=== PATIENT | male | born 1975 | race Caucasian/White ===

== ENCOUNTER 2021-05-02 10:27 | Emergency (ER) | payer BC ==
[2021-05-02 10:40] VITALS: RESP 18
[2021-05-02 11:49] LABS: Basophils % (A) 0 %; Eosinophils # (A) 0.1 k/uL (0-0.7); Eosinophils % (A) 1 %; HCT 40.1 % (39.0-53.0); HGB 13.3 gm/dL (13.0-17.5); Lymphocytes # (A) 0.9 k/uL (1.0-4.8); Lymphocytes % (A) 8 %; MCH 29.5 pg (25.0-35.0); MCHC 33.2 g/dL (31.0-37.0); MCV 88.9 fL (80.0-100.0); Mean Platelet Volume 7.1; Monocytes # (A) 0.9 k/uL (0-1.0); Monocytes % (A) 7 %; Neutrophils # (A) 10.2 k/uL (1.3-7.7); Neutrophils % (A) 83 %; Platelet Count 235 k/uL (150-450); RBC 4.52 m/uL (4.30-5.90); RDW 13.6 % (11.5-15.5); WBC 12.4 k/uL (3.8-10.6)
--- NOTE | 2021-05-02 11:51 | ED ---
Skin/Abscess/FB HPI - General Chief complaint: Skin/Abscess/Foreign Body Stated complaint: arm infection, swelling Time Seen by Provider: 05/02/21 10:51 Source: patient Mode of arrival: ambulatory Limitations: no limitations - History of Present Illness Initial comments: Patient is a 46-year-old male with history of diabetes, presenting to the emergency Department with complaints of an infection on his right arm. Patient states last week he noticed a small pimple on his arm, he picked at it and then that same day he was weed whacking his yard. Patient states after that he noticed the irritation looked worse. He states over the past few days the redness and swelling progressed so he went to [facility] 2 days ago for evaluation. They started him on Keflex and Bactrim, do a line around the redness and gave him return precautions. Patient states this morning he woke up and the swelling is increased, and swelling is going up to his elbow and down into his hand which wasn't there before. He states his pain is minimal. He's had no fevers, no nausea or vomiting. He has been taking his medications as prescribed over the past day and a half. He has no further complaints at this time. Upon arrival to the ER his vital signs are stable. - Related Data Home Medications Medication Instructions Recorded Confirmed Acetaminophen [Tylenol] 500 mg PO Q4-6H PRN 05/02/21 05/02/21 Aspirin EC [Ecotrin Low Dose] 81 mg PO HS 05/02/21 05/02/21 Cephalexin [Keflex] 500 mg PO QID 05/02/21 05/02/21 Fluvastatin Sodium 20 mg PO HS 05/02/21 05/02/21 Ibuprofen [Motrin Ib] 800 mg PO Q8H PRN 05/02/21 05/02/21 Naproxen 500 mg PO BID 05/02/21 05/02/21 Pantoprazole Sodium [Protonix] 40 mg PO DAILY 05/02/21 05/02/21 Sulfamethox-Tmp 800-160Mg [Bactrim 1 tab PO Q12HR 05/02/21 05/02/21 DS 800-160 mg] metFORMIN HCL 1,000 mg PO HS 05/02/21 05/02/21 sitaGLIPtin [Januvia] 100 mg PO HS 05/02/21 05/02/21 Allergies Allergy/AdvReac Type Severity Reaction Status Date / Time bee venom protein (honey bee) Allergy Swelling Verified 05/02/21 11:23 egg Allergy Unknown Verified 05/02/21 11:23 Review of Systems ROS Statement: Those systems with pertinent positive or pertinent negative responses have been documented in the HPI. ROS Other: All systems not noted in ROS Statement are negative. Past Medical History Past Medical History: Diabetes Mellitus History of Any Multi-Drug Resistant Organisms: None Reported Additional Past Surgical History / Comment(s): vasectomy Past Psychological History: No Psychological Hx Reported Smoking Status: Current every day smoker Past Alcohol Use History: None Reported Past Drug Use History: None Reported General Exam - General Exam Comments Initial Comments: GENERAL: Patient is well-developed and well-nourished. Patient is nontoxic and in no ac [place] distress. HEAD: Atraumatic, normocephalic. EYES: Pupils equal round and reactive to light, extraocular movements intact, sclera anicteric, conjunctiva are normal. Eyelids were unremarkable. ENT: TMs normal, nares patent, oropharynx clear without exudates. Moist mucous me mbranes. NECK: Normal range of motion, supple without lymphadenopathy or JVD. LUNGS: Unlabored respirations. Breath sounds clear to auscultation bilaterally and equal. No wheezes rales or rhonchi. HEART: Regular rate and rhythm without murmurs, rubs or gallops. ABDOMEN: Soft, nontender, normoactive bowel sounds. No guarding, no rebound. No masses appreciated. : Deferred MUSCULOSKELETAL: Normal extremities with adequate strength and normal range of motion, no pitting or edema. No clubbing or cyanosis. NEUROLOGICAL: Patient is alert and oriented x 3. Motor and sensory are also intact. Cranial nerves II through XII grossly intact. Symmetrical smile. Normal speech, normal gait. PSYCH: Normal mood, normal affect. SKIN: Warm, Dry, normal turgor. Patient has a 0.5 cm open wound on the lateral aspect of the right forearm, there is surrounding cellulitis, swelling that extends into the elbow and down into the hand. The area is warm to the touch, indurated. Limitations: no limitations Course Vital Signs 05/02/21 10:33 Temperature 98.5 F Pulse Rate 100 Respiratory 18 Rate Blood Pressure 126/77 O2 Sat by Pulse 97 Oximetry Medical Decision Making - Medical Decision Making Patient is a 46-year-old male here for a small wound and cellulitis of his right forearm. He was evaluated 2 days ago [facility], was started on Keflex and Bactrim, he presents today with worsening swelling and redness. No fevers, and vitals are stable. Patient's labs show a slight white count at 12.4, glucose is elevated at 204, CRP is 20.7. Patient's vital signs remained stable, afebrile. I discussed with patient that I do recommend admission for IV antibiotics. Patient states he does not want to stay in the hospital. I discussed the potential side effects of a worsening infection including sepsis and , patient still refused to stay. He states he will follow-up with his PCP tomorrow for reevaluation. I will give him 1 g of Rocephin here in the ER, he needs to continue with his Bactrim and Keflex as prescribed, not miss a dose. Very strict return parameters were discussed with the patient and his and they both verbalized understanding. Case discussed with Dr. Grimm. - Lab Data Result diagrams: 05/02/21 11:36 05/02/21 11:36 Lab Results 05/02/21 05/02/21 Range/Units 11:36 11:36 WBC 12.4 H (3.8-10.6) k/uL RBC 4.52 (4.30-5.90) m/uL Hgb 13.3 (13.0-17.5) gm/dL Hct 40.1 (39.0-53.0) % MCV 88.9 (80.0-100.0) fL MCH 29.5 (25.0-35.0) pg MCHC 33.2 (31.0-37.0) g/dL RDW 13.6 (11.5-15.5) % Plt Count 235 (150-450) k/uL MPV 7.1 Neutrophils % 83 % Lymphocytes % 8 % Monocytes % 7 % Eosinophils % 1 % Basophils % 0 % Neutrophils # 10.2 H (1.3-7.7) k/uL Lymphocytes # 0.9 L (1.0-4.8) k/uL Monocytes # 0.9 (0-1.0) k/uL Eosinophils # 0.1 (0-0.7) k/uL Basophils # 0.0 (0-0.2) k/uL Sodium 137 (137-145) mmol/L Potassium 4.1 (3.5-5.1) mmol/L Chloride 106 (98-107) mmol/L Carbon Dioxide 24 (22-30) mmol/L Anion Gap 7 mmol/L BUN 14 (9-20) mg/dL Creatinine 0.72 (0.66-1.25) mg/dL Est GFR (CKD-EPI)AfAm >90 (>60 ml/min/1.73 sqM) Est GFR (CKD-EPI)NonAf >90 (>60 ml/min/1.73 sqM) Glucose 204 H (74-99) mg/dL Calcium 8.8 (8.4-10.2) mg/dL Total Bilirubin 0.7 (0.2-1.3) mg/dL AST 26 (17-59) U/L ALT 32 (4-49) U/L Alkaline Phosphatase 72 (38-126) U/L C-Reactive Protein 20.7 H (<1.0) mg/dL Total Protein 6.2 L (6.3-8.2) g/dL Albumin 3.7 (3.5-5.0) g/dL Disposition Clinical Impression: Right forearm cellulitis Disposition: HOME SELF-CARE Condition: Stable Instructions (If sedation given, give patient instructions): Cellulitis (ED) Additional Instructions: Please return to the Emergency Department if symptoms worsen or any other concerns. Continue with already prescribed antibiotics, finish entire course. Elevate above the heart level. Please follow-up with your primary care physician in 1-2 days as discussed. Is patient prescribed a controlled substance at d/c from ED?: No Referrals: Nonstaff,Physician [Primary Care Provider] - 1-2 days Time of Disposition: 13:03
[2021-05-02 11:59] LABS: ALT 32 U/L (4-49); AST 26 U/L (17-59); African American GFR (CKD) >90 (>60 ml/min/1.73 sqM); Albumin 3.7 g/dL (3.5-5.0); Alkaline Phosphatase 72 U/L (38-126); Anion Gap 7 mmol/L; Blood Urea Nitrogen 14 mg/dL (9-20); Calcium 8.8 mg/dL (8.4-10.2); Carbon Dioxide 24 mmol/L (22-30); Chloride 106 mmol/L (98-107); Glucose 204 mg/dL (74-99); Non-African American GFR(CKD) >90 (>60 ml/min/1.73 sqM); Potassium 4.1 mmol/L (3.5-5.1); Sodium 137 mmol/L (137-145); Total Bilirubin 0.7 mg/dL (0.2-1.3); Total Protein 6.2 g/dL (6.3-8.2)
[2021-05-02 12:26] LABS: C Reactive Protein 20.7 mg/dL (<1.0)
[2021-05-02] MEDS ORDERED: cefTRIAXone IN SWFI 1,000 MG/10 ML SYRINGE IVP STA (13:02)
[2021-05-02 13:34] VITALS: BP 118/70; PULSE 74; TEMP 98.4
[2021-05-02 13:46] LABS: Erythrocyte Sedimentation Rate 25 mm/hr (0-15)
== END 2021-05-02 13:40 | disposition home or self-care (01) ==
LOC: EC 10:27
DX: L03.113 Cellulitis of right upper limb (principal); E11.9 Type 2 diabetes mellitus without complications; F17.200 Nicotine dependence, unspecified, uncomplicated; Z79.84 Long term (current) use of oral hypoglycemic drugs; Z79.82 Long term (current) use of aspirin; Z79.1 Long term (current) use of non-steroidal anti-inflammatories (NSAID)
CPT/HCPCS: 36415; 80053; 85025; 85652; 86140; 96374; 99283

== ENCOUNTER 2021-09-08 19:24 | Observation (INO) | payer BC ==
[2021-09-08] MEDS ORDERED: cefTRIAXone IN SWFI 1,000 MG/10 ML SYRINGE IVP STA (21:19)
[2021-09-08 21:53] LABS: Basophils % (A) 1 %; Eosinophils # (A) 0.2 k/uL (0-0.7); Eosinophils % (A) 2 %; HGB 13.9 gm/dL (13.0-17.5); Lymphocytes # (A) 1.7 k/uL (1.0-4.8); Lymphocytes % (A) 18 %; MCH 30.2 pg (25.0-35.0); MCHC 33.9 g/dL (31.0-37.0); MCV 89.1 fL (80.0-100.0); Mean Platelet Volume 7.1; Monocytes # (A) 0.6 k/uL (0-1.0); Monocytes % (A) 7 %; Neutrophils # (A) 6.5 k/uL (1.3-7.7); Neutrophils % (A) 70 %; Platelet Count 303 k/uL (150-450); RBC 4.61 m/uL (4.30-5.90); WBC 9.3 k/uL (3.8-10.6)
[2021-09-08 22:16] LABS: African American GFR (CKD) >90 (>60 ml/min/1.73 sqM); Anion Gap 8 mmol/L; Blood Urea Nitrogen 14 mg/dL (9-20); Calcium 9.3 mg/dL (8.4-10.2); Carbon Dioxide 27 mmol/L (22-30); Chloride 101 mmol/L (98-107); Glucose 185 mg/dL (74-99); Non-African American GFR(CKD) >90 (>60 ml/min/1.73 sqM); Potassium 4.2 mmol/L (3.5-5.1); Sodium 136 mmol/L (137-145)
--- NOTE | 2021-09-09 00:01 | ED ---
General Adult HPI - General Chief complaint: Skin/Abscess/Foreign Body Stated complaint: L hand lac Time Seen by Provider: 09/08/21 20:29 Source: patient Mode of arrival: ambulatory Limitations: no limitations - History of Present Illness Initial comments: 46-year-old male with a history of type 2 diabetes presents to the emergency Department with complaints of infected wound to the left hand. Patient states he cut his hand on a merle automobile part on August 26, then was seen at urgent care last Friday, September 01, where he was x-rayed and prescribed amoxicillin. Patient states he has been taking the antibiotic as directed but has continued to have increased redness, swelling, and has developed a blister- like appearance with drainage from the wound yesterday. Patient denies fever, chills, headache, shortness of breath, nausea or vomiting. - Related Data Home Medications Medication Instructions Recorded Confirmed Aspirin EC [Ecotrin Low Dose] 81 mg PO HS 05/02/21 05/02/21 Fluvastatin Sodium 20 mg PO HS 05/02/21 05/02/21 Ibuprofen [Motrin Ib] 800 mg PO Q8H PRN 05/02/21 05/02/21 Pantoprazole Sodium [Protonix] 40 mg PO DAILY 05/02/21 05/02/21 metFORMIN HCL [Glucophage] 1,000 mg PO HS 05/02/21 05/02/21 sitaGLIPtin [Januvia] 100 mg PO HS 05/02/21 05/02/21 Allergies Allergy/AdvReac Type Severity Reaction Status Date / Time bee venom protein (honey bee) Allergy Swelling Verified 09/08/21 23:38 egg Allergy Unknown Verified 09/08/21 23:38 Review of Systems ROS Statement: Those systems with pertinent positive or pertinent negative responses have been documented in the HPI. ROS Other: All systems not noted in ROS Statement are negative. Past Medical History Past Medical History: Diabetes Mellitus History of Any Multi-Drug Resistant Organisms: None Reported Additional Past Surgical History / Comment(s): vasectomy Past Psychological History: No Psychological Hx Reported Smoking Status: Current every day smoker Past Alcohol Use History: Occasional Past Drug Use History: None Reported General Exam Limitations: no limitations (Well-developed, well-nourished male in no acute distress. Initial temperature 98.5, pulse 97, respirations 18, blood pressure 145/96, pulse ox 98% on room air.) General appearance: alert, in no apparent distress Respiratory exam: Present: normal lung sounds bilaterally. Absent: respiratory distress, wheezes, rales, rhonchi, stridor Cardiovascular Exam: Present: regular rate, normal rhythm, normal heart sounds. Absent: systolic murmur, diastolic murmur, rubs, gallop, clicks GI/Abdominal exam: Present: soft, normal bowel sounds. Absent: distended, tenderness, guarding, rebound, rigid Left Forearm Wrist exam: Present: normal inspection, full ROM Hand Wrist exam: Present: tenderness, swelling, erythema, other (Purulent brown discharge noted from a 1 cm open area surrounded by an erythematous region on the hyperthenar eminence of the left hand just extends to the dorsal surface and to the proximal phalange of the fifth digit) Vascular: Present: normal capillary refill, radial pulse. Absent: vascular compromise Neurological exam: Present: alert, oriented X3, CN II-XII intact Psychiatric exam: Present: normal affect, normal mood Skin exam: Present: warm, dry, intact, normal color. Absent: rash Course Vital Signs 09/08/21 09/09/21 19:35 00:30 Temperature 98.5 F Pulse Rate 97 68 Respiratory 18 18 Rate Blood Pressure 145/96 146/100 O2 Sat by Pulse 98 98 Oximetry Medical Decision Making - Medical Decision Making 46-year-old male with a history of type 2 diabetes presents to the emergency department for evaluation. Physical exam is significant for purulent brown drainage from a wound on the hypothenar eminence of the left hand. Wound is surrounded with an erythematous region that extends to the dorsal surface and extends to the fifth digit. Patient declines need for any pain medication. He is afebrile; vital signs are stable. Lab work is mostly unremarkable. Patient was given Rocephin and vancomycin while in the emergency department. This case was discussed with my attending Dr. Jacob. Patient will be admitted, Dr. Garcia agrees to accept this patient and ortho will be consulted. - Lab Data Result diagrams: 09/08/21 21:09/08/21 21:23 Lab Results 09/08/21 09/08/21 09/08/21 Range/Units : 21: 21: WBC 9.3 (3.8-10.6) k/uL RBC 4.61 (4.30-5.90) m/uL Hgb 13.9 (13.0-17.5) gm/dL Hct 41.0 (39.0-53.0) % MCV 89.1 (80.0-100.0) fL MCH 30.2 (25.0-35.0) pg MCHC 33.9 (31.0-37.0) g/dL RDW 14.0 (11.5-15.5) % Plt Count 303 (150-450) k/uL MPV 7.1 Neutrophils % 70 % Lymphocytes % 18 % Monocytes % 7 % Eosinophils % 2 % Basophils % 1 % Neutrophils # 6.5 (1.3-7.7) k/uL Lymphocytes # 1.7 (1.0-4.8) k/uL Monocytes # 0.6 (0-1.0) k/uL Eosinophils # 0.2 (0-0.7) k/uL Basophils # 0.0 (0-0.2) k/uL Sodium 136 L (137-145) mmol/L Potassium 4.2 (3.5-5.1) mmol/L Chloride 101 (98-107) mmol/L Carbon Dioxide 27 (22-30) mmol/L Anion Gap 8 mmol/L BUN 14 (9-20) mg/dL Creatinine 0.67 (0.66-1.25) mg/dL Est GFR (CKD-EPI)AfAm >90 (>60 ml/min/1.73 sqM) Est GFR (CKD-EPI)NonAf >90 (>60 ml/min/1.73 sqM) Glucose 185 H (74-99) mg/dL Plasma Lactic Acid Binu 0.7 (0.7-2.0) mmol/L Calcium 9.3 (8.4-10.2) mg/dL Disposition Clinical Impression: Open wound, hand Disposition: ADMITTED IP TO THIS [facility] Condition: Serious Referrals: Nonstaff,Physician [Primary Care Provider] - 1-2 days Decision Date: 09/09/21 Decision Time: 00:07
[2021-09-09] MEDS ORDERED: VANCOMYCIN IV PER PHARMACY 1 EACH MISC MISCELLANE PRN (00:06)
[2021-09-09] MEDS ORDERED: NALOXONE 0.4 MG/ML 1 ML VIAL IV PRN (00:07)
[2021-09-09] MEDS ORDERED: IBUPROFEN 400 MG TAB PO PRN (00:07)
[2021-09-09] MEDS ORDERED: VANCOMYCIN 1,750 MG in SODIUM CHLORIDE 0.9% 500 ML 500 ML IVPB ONE (00:15)
[2021-09-09] MEDS ORDERED: ACETAMINOPHEN TAB 325 MG TAB PO PRN (04:52)
--- NOTE | 2021-09-09 05:01 | P.HPIM ---
History of Present Illness H&P Date: 09/09/21 Chief Complaint: Left hand swelling 46-year-old male with diabetes mellitus Patient comes in due to worsening swelling and drainage from an injury he sustained over his left hand, about 2 weeks ago he was doing some work on his car when he injured his hand initially for the first few days after he was cleaning it at home but later started swelling up where he couldn't see his knuckles with erythema stay decided to go to an urgent care about 5 days later who prescribed him Augmentin and sent him home patient been using Augmentin for about a week ago with no much improvement for which she decided come to the hospital he denies any fevers or chills however he had couple episodes where he would break in sweat. He has also noticed that his blood sugar is elevated and out of control. Swelling has improved slightly in his left hand however it continues to drain and hurts over the injury site of the hyperthenar Patient came in and evaluated today no leukocytosis no fever, no imaging done in the ED. Patient claims to have an updated tetanus shot about 2 years ago. 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 All other systems were reviewed and are negative Past Medical History Past Medical History: Diabetes Mellitus History of Any Multi-Drug Resistant Organisms: None Reported Additional Past Surgical History / Comment(s): vasectomy Past Psychological History: No Psychological Hx Reported Smoking Status: Current every day smoker Past Alcohol Use History: Occasional Past Drug Use History: None Reported - Past Family History Family Family Medical History: No Reported History Medications and Allergies Home Medications Medication Instructions Recorded Confirmed Type Aspirin EC [Ecotrin Low Dose] 81 mg PO HS 05/02/21 09/08/21 History Fluvastatin Sodium 20 mg PO HS 05/02/21 09/08/21 History Ibuprofen [Motrin Ib] 800 mg PO Q8H PRN 05/02/21 09/08/21 History Pantoprazole Sodium [Protonix] 40 mg PO HS 05/02/21 09/08/21 History metFORMIN HCL [Glucophage] 1,000 mg PO HS 05/02/21 09/08/21 History sitaGLIPtin [Januvia] 100 mg PO HS 05/02/21 09/08/21 History Allergies Allergy/AdvReac Type Severity Reaction Status Date / Time bee venom protein (honey bee) Allergy Swelling Verified 09/08/21 23:38 egg Allergy Unknown Verified 09/08/21 23:38 Physical Exam Vitals: Vital Signs Temp Pulse Resp BP Pulse Ox 09/09/21 00:30 68 18 146/100 98 09/08/21 19:35 98.5 F 97 18 145/96 98 Intake and Output 09/08/21 09/08/21 09/09/21 14:59 22:59 06:59 Other: Weight 102.058 kg Constitutional: No acute distress, conversant, pleasant Eyes: Anicteric sclerae, moist conjunctiva, Pupils equal round reactive to light ENMT: NC/AT Oropharynx clear, no erythema, or exudates Neck: Supple, FROM, no masses, or JVD No carotid bruits No thyromegaly Lungs: Clear to auscultation Clear to percussion Normal respiratory effort, no accessory muscle use Cardiovascular: Heart regular in rate and rhythm, No murmurs, gallops, or rubs No peripheral edema Abdominal: Soft Nontender, no guarding, rebound or rigidity Abdomen moving with respiration Normoactive bowel sounds No hepatomegaly, No splenomegaly No palpable mass No abdominal wall hernia noted Skin: Injury side to swollen with surrounding erythema tends to the touch with drainage: Limitation and patient has movement unable to perform a complete fist feels tight and painful. Capillary refill is immediate over the fingers Extremities: No digital cyanosis No clubbing Pedal pulses intact and symmetrical Radial pulses intact and symmetrical No calf tenderness Psychiatric: Alert and oriented to person, place and time Appropriate affect fair judgement Neuro Muscles Strength 5/5 in all 4 extremities Sensation to light touch grossly present throughout Cranial nerves II-XII grossly intact No focal sensory deficits Lymphatics: no palpable cervical or supraclavicular , or inguinal lymph nodes Results CBC & Chem 7: 09/08/21 21:23 09/08/21 21:23 Labs: Abnormal Lab Results - Last 24 Hours (Table) 09/08/21 Range/Units 21:23 Sodium 136 L (137-145) mmol/L Glucose 185 H (74-99) mg/dL Assessment and Plan Assessment: Left hand cellulitis and abscess formation failed outpatient therapy Follow-up cultures Surgery evaluation Empirically start patient on Rocephin and vancomycin Tylenol for fever Pain control with opiates Check x-ray of the left hand Check CRP ESR Diabetes mellitus Hold oral hypoglycemic agent Insulin sliding scale Patient is full code Mechanical DVT prophylaxis Anticipated length of stay less than 2 midnights Anticipated discharge home
[2021-09-09 06:57] LABS: Glucose,Whole Blood 279 mg/dL (75-99)
[2021-09-09] MEDS: INSULIN ASPART (NovoLOG) 100 UNIT/ML VIAL SQ SCH ×4 (06:59→20:58)
--- NOTE | 2021-09-09 07:38 | XR ---
EXAMINATION TYPE: XR hand limited LT DATE OF EXAM: 09/09/2021 CLINICAL HISTORY: pain TECHNIQUE: Frontal, lateral images of the left hand are obtained. COMPARISON: None. FINDINGS: There is no acute fracture/dislocation evident. The joint spaces appear within normal limi ts. Soft tissue edema suggested medial left hand. No radiographic evidence for osteomyelitis. IMPRESSION: There is no acute fracture or dislocation. ICD 10 NO FRACTURE, INITIAL EVALUATION
[2021-09-09] MEDS: VANCOMYCIN 1,750 MG in SODIUM CHLORIDE 0.9% 500 ML 500 ML IVPB SCH ×2 (08:00→17:49)
[2021-09-09] MEDS: HYDROcodone/APAP 5-325MG 1 EACH TAB PO PRN (08:04)
--- NOTE | 2021-09-09 12:03 | P.CNOR ---
<Edie Florence - Last Filed: 09/09/21 11:58> History of Present Illness - HPI Consult date: 09/09/21 Consult reason: other (Abscess left hand) History of present illness: 46-year-old male with a history of type 2 diabetes presents to the emergency Department with complaints of infected wound to the left hand. Patient states he cut his hand on a merle automobile part on August 26, then was seen at urgent care last Friday, September 01, where he was x-rayed and prescribed Augmentin. Patient states he has been taking the antibiotic as directed but has continued to have increased redness, swelling, and has developed a blister-like appearance with drainage from the wound yesterday. He states that the wound opened up and purulent material is expressed. Cultures were taken in the emergency department. Patient denies fever, chills, headache, shortness of breath, nausea or vomiting. Orthopedics is consulted for further evaluation and treatment. Past Medical History Past Medical History: Diabetes Mellitus History of Any Multi-Drug Resistant Organisms: None Reported Additional Past Surgical History / Comment(s): vasectomy Past Psychological History: No Psychological Hx Reported Smoking Status: Current every day smoker Past Alcohol Use History: Occasional Past Drug Use History: None Reported - Past Family History Family Family Medical History: No Reported History Medications and Allergies Home Medications Medication Instructions Recorded Confirmed Type Aspirin EC [Ecotrin Low Dose] 81 mg PO HS 05/02/21 09/08/21 History Fluvastatin Sodium 20 mg PO HS 05/02/21 09/08/21 History Ibuprofen [Motrin Ib] 800 mg PO Q8H PRN 05/02/21 09/08/21 History Pantoprazole Sodium [Protonix] 40 mg PO HS 05/02/21 09/08/21 History metFORMIN HCL [Glucophage] 1,000 mg PO HS 05/02/21 09/08/21 History sitaGLIPtin [Januvia] 100 mg PO HS 05/02/21 09/08/21 History Allergies Allergy/AdvReac Type Severity Reaction Status Date / Time bee venom protein (honey bee) Allergy Swelling Verified 09/08/21 23:38 egg Allergy Unknown Verified 09/08/21 23:38 Physical Examination This is a pleasant 46-year-old male in no acute distress. He is alert and oriented 3. Exam of the left upper extremity reveals redness and swelling with an area of opening with some purulent material actively draining along the ulnar aspect of the hand. He has full finger motion is able to fully extend and flex the little finger with minimal discomfort. Sensation is intact to the finger. There is no evidence of ascending lymphangitis to the arm. Full elbow motion without difficulty or pain. Results X-rays of the left hand show no bony abnormality or fracture. - Labs Labs: Abnormal Lab Results - Last 24 Hours (Table) 09/08/21 09/09/21 Range/Units 21: 06:55 Sodium 136 L (137-145) mmol/L Glucose 185 H (74-99) mg/dL POC Glucose (mg/dL) 279 H (75-99) mg/dL Microbiology - Last 24 Hours (Table) 09/08/21 21:23 Wound Culture - Preliminary Hand - Left H & H 09/08/21 Range/Units 21:23 Hgb 13.9 (13.0-17.5) gm/dL Hct 41.0 (39.0-53.0) % Result Diagrams: 09/08/21 21:09/08/21 21:23 Assessment and Plan (1) Type 2 diabetes mellitus Current Visit: Yes Status: Acute Code(s): E11.9 - TYPE 2 DIABETES MELLITUS WITHOUT COMPLICATIONS SNOMED Code(s): 19905647 (2) Open wound, hand Current Visit: Yes Status: Acute Code(s): S61.409A - UNSPECIFIED OPEN WOUND OF UNSPECIFIED HAND, INIT ENCNTR SNOMED Code(s): 623772438 Plan: The clinical findings are discussed with the patient and his significant other. Treatment options are discussed including surgical intervention versus IV antibiotics for the next 24 hours and reevaluation the morning. The patient will remain inpatient overnight on IV antibiotics per internal medicine. We will reevaluate in the morning to assess if surgical intervention is indicated. He'll be nothing by mouth after midnight tonight. <Janeth Westfall - Last Filed: 09/09/21 12:21> Physical Examination Osteopathic Statement: *. No significant issues noted on an osteopathic structural exam other than those noted in the History and Physical/Consult. Results - Labs Labs: Abnormal Lab Results - Last 24 Hours (Table) 09/08/21 09/09/21 Range/Units 21:23 06:55 Sodium 136 L (137-145) mmol/L Glucose 185 H (74-99) mg/dL POC Glucose (mg/dL) 279 H (75-99) mg/dL Microbiology - Last 24 Hours (Table) 09/08/21 21:23 Wound Culture - Preliminary Hand - Left H & H 09/08/21 Range/Units 21:23 Hgb 13.9 (13.0-17.5) gm/dL Hct 41.0 (39.0-53.0) % Result Diagrams: 09/08/21 21:23 09/08/21 21:23 Assessment and Plan Plan: Patient seen and examined with Edie Florence. Jerzy is a 46-year-old male who has a history of diabetes. He cut his hand 10 days ago. He failed outpatient antibiotics (Augmentin) and finally had some relief yesterday when the wound started draining purulent fluid. He is still able to move his fingers denies any numbness tingling. Past medical history, past surgical history, review of systems, ALLERGIES, and meds were reviewed above. AVSS Exam of the left hand reveals an abscess over the hypothenar eminence. Seems relatively superficial, able to move his small finger including passive extension with minimal pain. Tenderness to the thenar eminence or any deep spaces of the hand, sensation is intact to light touch, purulent drainage from the wound plan hand squeezed. Jerzy has an abscess of his left hand. Given his diabetes he will at minimum need IV antibiotics and probably surgical debridement. He is earlier this morning. We agree with admission for IV antibiotics. Like for him to be nothing by mouth at midnight in preparation for possible operative debridement tomorrow. We will evaluate in the morning and make a decision. Janeth Westfall,
[2021-09-09 12:32] LABS: Glucose,Whole Blood 185 mg/dL (75-99)
--- NOTE | 2021-09-09 13:29 | P.PN ---
Subjective Progress Note Date: 09/09/21 Hospital course: Patient is a very pleasant 46-year-old male with a past medical history [id number] diabetes mellitus, hyperlipidemia and GERD. He presented to the emergency department on 09/09/21 with a chief complaint of redness, swelling, and drainage from wound on the left hand. Patient reported 2 weeks ago he was working on his car and cut his hand resulting in some rust going beneath his skin requiring removal, patient states rest was easily removed and approximately 5 days later (09/01/21) he began experiencing swelling and redness and went to an urgent care in which he was prescribed Augmentin for treatment. Patient states he completed course of antibiotics, but unfortunately redness, swelling, and drainage from wound worsened. Patient now with reports of elevated blood glucose levels and difficulties with range of motion and inability to make a complete fist so he came to the ER for further evaluation. 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 X-ray left hand showing soft tissue edema to medial left hand with no radiographic evidence of osteomyelitis. Physical exam: Patient seen and fully evaluated at the bedside this morning. He reports currently pain to left hand is controlled and denies having any further needs or complaints at this time. Patient and informed and he will likely need another 1-2 nights stay in the hospital for IV antibiotics and possible I&D tanesha orrow morning. Vital signs stable this morning and patient has remained afebrile since admission. Leukocytosis was not present upon admission and will repeat labs tomorrow morning along with ESR and CRP. Infectious disease consulted secondary to failed outpatient treatment. Awaiting wound culture results. Vital signs reviewed and stable. General: Nontoxic, no distress and appears stated age. Derm: Skin warm and dry, normal coloration for ethnicity. Patient with moderate erythema, edema, and open wound with purulent drainage to palmar surface of left hand located beneath fourth and fifth digit and extending to medial side of hand. Head: Atraumatic, normocephalic and symmetric. Eyes: EOMs intact, no lid lag, and anicteric sclera Mouth: no lip lesions, mucus membranes moist Cardiovascular: regular rate and rhythm with normal S1S2, no murmur, positive posterior tibial pulses bilaterally, and cap refill < 2 seconds. Lungs: Respirations even, regular, and unlabored on room air. Lungs CTA bilaterally, no rhonchi, no rales, no wheezing, and no accessory muscle usage. Abdominal: soft, nontender to palpation, no guarding, no appreciable organomegaly Ext: No gross muscle atrophy, no edema, no contractures. Limited range of motion to left hand due to injury/swelling/infection and reports of pain with movement. Patient able to bend pinky finger (fifth digit), but unable to make a fist due to pain. Sensation intact. Neuro: Speech clear, face symmetrical and CN II-XII grossly intact with no noted focal neuro deficits Psych: Alert and oriented to person, place, time, and situation. Appropriate and pleasant affect. Assessment and Plan of Care: Left hand cellulitis, failed outpatient treatment X-ray left hand showing soft tissue edema to medial left hand with no radiographic evidence of osteomyelitis. IV antibiotics: Rocephin and vancomycin pending further culture results and/or recommendations from infectious disease Follow-up on wound cultures Consult orthopedic surgery for possible I&D Symptomatic care and pain management Continue close monitoring of range of motion and neurovascular status of left hand Consult infectious disease due to failed outpatient treatment of cellulitis. Continued close monitoring of a.m. labs along with ESR and CRP. Sfm-[id number] Diabetes Mellitus with hyperglycemia Hold Glucophage and Januvia and continue glycemic protocol with low-dose sliding scale to obtain tight glycemic control throughout treatment process. Hyperlipidemia Continue daily medication regimen of fluvastatin 20 mg nightly. GERD Continue daily medication regimen with Protonix 40 mg nightly. CODE STATUS: Full code DVT prophylaxis: SCDs Discussed with: Patient, patient's , and RN Anticipated discharge date: Clinical course to determine Anticipated discharge place: Home A total of 40 minutes was spent on the care of this complex patient more than 50% of the time was spent in counseling and care coordination. Objective - Vital Signs Vital signs: Vital Signs Temp 97.5 F L 09/09/21 07:02 Pulse 81 09/09/21 07:02 Resp 18 09/09/21 07:02 BP 145/86 09/09/21 07:02 Pulse Ox 98 09/09/21 07:02 Intake & Output 09/08/21 09/09/21 09/09/21 18:59 06:59 18:59 Weight 102.058 kg - Labs CBC & Chem 7: 09/08/21 21:23 09/08/21 21:23 Labs: Abnormal Lab Results - Last 24 Hours (Table) 09/08/21 09/09/21 09/09/21 Range/Units 21:23 06:55 12:21 Sodium 136 L (137-145) mmol/L Glucose 185 H (74-99) mg/dL POC Glucose (mg/dL) 279 H 185 H (75-99) mg/dL Microbiology - Last 24 Hours (Table) 09/08/21 21:23 Wound Culture - Preliminary Hand - Left
[2021-09-09 17:29] LABS: Glucose,Whole Blood 318 mg/dL (75-99)
[2021-09-09 20:23] LABS: Glucose,Whole Blood 306 mg/dL (75-99)
[2021-09-09] MEDS: PANTOPRAZOLE 40 MG TABLET PO SCH (20:58)
[2021-09-09] MEDS: ATORVASTATIN 10 MG TAB PO SCH (20:58)
[2021-09-10] MEDS: VANCOMYCIN 1,750 MG in SODIUM CHLORIDE 0.9% 500 ML 500 ML IVPB SCH ×3 (02:10→17:54)
--- NOTE | 2021-09-10 07:21 | P.CONS ---
History of Present Illness - Reason for Consult Consult date: 09/09/21 left hand abscess Requesting physician: Jian Ross - Chief Complaint left hand pain and redness x week - History of Present Illness History of present illness : Patient is 46-year-old male who apparently sustained injury to his left hand about 2 weeks ago when he was working_patient did sustain laceration to the lateral border of his left hand patient subsequently noticed to having swelling and redness to the left hand patient was seen at [facility] ER about a week ago and was started on oral Augmentin which he took for about 6 days however the patient did not have any improvement patient did have worsening swelling and redness and some pressure-like discomfort 3-4 out of 10 had no radiation did have minimal drainage patient on presentation to the hospital was afebrile patient did have a normal white count kidney function was normal patient did have local wound culture as well as blood cultures obtained patient did have x-rays of the hand no acute fracture dislocation seen patient was started on Rocephin and vancomycin has been admitted to hospital infectious disease was consulted for further management of antibiotic therapy Review of system: CONSTITUTIONAL: Positive for weakness denies fever. EYES: No complaint. ENT: No complaint. RESPIRATORY: No complaint. CARDIOVASCULAR: No complaint. GENITOURINARY: No complaint. GASTROINTESTINAL: No complaint. MUSCULOSKELETAL: As per history of present illness. INTEGUMENTARY: No complaint. PSYCHOLOGIC: No complaint. ENDOCRINE: No complaint. NEUROLOGIC: No complaint. Past medical history : Reviewed, documented below Past surgical history : Reviewed, documented below Social history: Reviewed, documented below Medications: Reviewed, as documented below EXAMINATION: Vital sigans= Reviewed and documented below GENERAL DESCRIPTION: Middle-aged male lying in bed, no distress. No tachypnea or accessory muscle of respiration use. HEENT: Shows Pallor , no scleral icterus. Oral mucous membrane is dry. NECK: Trachea central, no thyromegaly. LUNGS: Unlabored breathing. Clear to auscultation anteriorly. No wheeze or crackle. HEART: S1, S2, regular rate and rhythm. ABDOMEN: Soft, no tenderness , guarding or rigidity EXTREMITIES: Left hand lateral border did have an area of swelling redness and fluctuance with some purulent drainage and tender to touch. SKIN: No rash, no masses palpable. NEUROLOGICAL: The patient is awake, alert, oriented x3, mood and affect normal. LABS AND RADIOLOGY: Reviewed results see below Assessment : Patient with a left hand abscess started as a traumatic wound when he was working on his car and has failed outpatient oral Augmentin therapy with question of possible community associated MRSA patient did have an area of fluctuation and drainage and will benefit from surgical drainage of this abscess for deep culture and decreasing the burden of infection Plan: 1-vancomycin pharmacy to dose with a target trough of 15 while watching kidney function and Vanco trough closely. 2-Rocephin 2 g daily 3-with surgical debridement and deep cultures We will follow on clinical condition and cultures to further adjust medication if needed Thank you for this consultation we will follow the patient along with you Past Medical History Past Medical History: Diabetes Mellitus History of Any Multi-Drug Resistant Organisms: None Reported Additional Past Surgical History / Comment(s): vasectomy Past Anesthesia/Blood Transfusion Reactions: No Reported Reaction Past Psychological History: No Psychological Hx Reported Smoking Status: Current every day smoker Past Alcohol Use History: Occasional Past Drug Use History: None Reported - Past Family History Family Family Medical History: No Reported History Medications and Allergies Home Medications Medication Instructions Recorded Confirmed Type Aspirin EC [Ecotrin Low Dose] 81 mg PO HS 05/02/21 09/08/21 History Fluvastatin Sodium 20 mg PO HS 05/02/21 09/08/21 History Ibuprofen [Motrin Ib] 800 mg PO Q8H PRN 05/02/21 09/08/21 History Pantoprazole Sodium [Protonix] 40 mg PO HS 05/02/21 09/08/21 History metFORMIN HCL [Glucophage] 1,000 mg PO HS 05/02/21 09/08/21 History sitaGLIPtin [Januvia] 100 mg PO HS 05/02/21 09/08/21 History Allergies Allergy/AdvReac Type Severity Reaction Status Date / Time bee venom protein (honey bee) Allergy Swelling Verified 09/08/21 23:38 egg Allergy Unknown Verified 09/08/21 23:38 Physical Exam Vitals: Vital Signs Temp Pulse Pulse Resp BP BP Pulse Ox 09/09/21 19:03 98.8 F 93 17 143/88 98 09/09/21 16:01 97.9 F 72 18 131/83 99 09/09/21 16:00 98.0 F 77 19 150/54 98 09/09/21 07:02 97.5 F L 81 18 145/86 98 09/09/21 00:30 68 18 146/100 98 Intake and Output 09/09/21 09/09/21 09/10/21 14:59 22:59 06:59 Other: Voiding Method Toilet # Voids 1 Results CBC & Chem 7: 09/08/21 21:23 09/08/21 21:23 Labs: Abnormal Lab Results - Last 24 Hours (Table) 09/09/21 09/09/21 09/09/21 Range/Units 06:55 12:21 17:27 POC Glucose (mg/dL) 279 H 185 H 318 H (75-99) mg/dL 09/09/21 Range/Units 20:22 POC Glucose (mg/dL) 306 H (75-99) mg/dL Microbiology - Last 24 Hours (Table) 09/08/21 21:23 Blood Culture - Preliminary Blood No Growth after 24 hours 09/08/21 21:23 Wound Culture - Preliminary Hand - Left
[2021-09-10] MEDS ORDERED: VANCOMYCIN TROUGH DUE 1 EACH MISC MISCELLANE ONE (08:00)
[2021-09-10 08:17] LABS: Basophils % (A) 1 %; Eosinophils # (A) 0.2 k/uL (0-0.7); Eosinophils % (A) 4 %; HCT 42.6 % (39.0-53.0); HGB 14.1 gm/dL (13.0-17.5); Lymphocytes # (A) 1.5 k/uL (1.0-4.8); Lymphocytes % (A) 23 %; MCH 29.8 pg (25.0-35.0); MCHC 33.1 g/dL (31.0-37.0); MCV 90.1 fL (80.0-100.0); Mean Platelet Volume 7.4; Monocytes # (A) 0.5 k/uL (0-1.0); Monocytes % (A) 8 %; Neutrophils # (A) 4.1 k/uL (1.3-7.7); Neutrophils % (A) 63 %; Platelet Count 328 k/uL (150-450); RBC 4.73 m/uL (4.30-5.90); RDW 13.4 % (11.5-15.5); WBC 6.5 k/uL (3.8-10.6)
[2021-09-10 08:30] LABS: Glucose,Whole Blood 241 mg/dL (75-99)
[2021-09-10 08:39] LABS: African American GFR (CKD) >90 (>60 ml/min/1.73 sqM); Anion Gap 10 mmol/L; Blood Urea Nitrogen 10 mg/dL (9-20); C Reactive Protein 3.8 mg/dL (<1.0); Carbon Dioxide 23 mmol/L (22-30); Chloride 103 mmol/L (98-107); Glucose 264 mg/dL (74-99); Non-African American GFR(CKD) >90 (>60 ml/min/1.73 sqM); Potassium 4.4 mmol/L (3.5-5.1); Sodium 136 mmol/L (137-145)
[2021-09-10] MEDS: INSULIN ASPART (NovoLOG) 100 UNIT/ML VIAL SQ SCH ×4 (09:20→21:27)
[2021-09-10 10:39] LABS: Erythrocyte Sedimentation Rate 28 mm/hr (0-15)
--- NOTE | 2021-09-10 11:14 | P.PN ---
Subjective Progress Note Date: 09/10/21 Principal diagnosis: Left hand infection The patient is a 46-year-old male with a history of type 2 diabetes presents to the emergency Department with complaints of infected wound to the left hand. Patient states he cut his hand on a merle automobile part on August 26, then wa s seen at urgent care last Friday, September 01, where he was x-rayed and prescribed Augmentin. Patient states he has been taking the antibiotic as directed but has continued to have increased redness, swelling, and has developed a blister-like appearance with drainage from the wound yesterday. He states that the wound opened up and purulent material is expressed. Cultures were taken in the emergency department. Patient denies fever, chills, headache, shortness of breath, nausea or vomiting. Orthopedics is consulted for further evaluation and treatment. Today, the patient states the hand is feeling better. The swelling and pain has improved. The hand is still draining and he has been applying warm compresses to the hand. He is currently on ceftriaxone and vancomycin. Cultures are revealing gram-positive cocci and presumptive MRSA. Dr. Childress has evaluated the patient and maintains his current antibiotics. Objective - Vital Signs Vital signs: Vital Signs Temp 97.9 F 09/10/21 07:00 Pulse 72 09/10/21 07:00 Resp 18 09/10/21 07:00 BP 132/73 09/10/21 07:00 Pulse Ox 97 09/10/21 07:00 Intake & Output 09/09/21 09/10/21 09/10/21 18:59 06:59 18:59 Other: Voiding Method Toilet # Voids 1 - Exam This is a pleasant 46-year-old male in no acute distress. He is alert and oriented 3. Exam of the left upper extremity reveals improving redness and swelling with an area of opening with some purulent material actively draining along the ulnar/volar aspect of the hand. He has full finger motion is able to fully extend and flex the little finger with very minimal discomfort and some stiffness. Passive motion of the finger without pain. Sensation is intact to the finger. There is no evidence of ascending lymphangitis to the arm. Full elbow motion without difficulty or pain. - Labs CBC & Chem 7: 09/10/21 07:50 09/10/21 07:50 Labs: Abnormal Lab Results - Last 24 Hours (Table) 09/09/21 09/09/21 09/09/21 Range/Units 12:21 17:27 20:22 ESR (0-15) mm/hr Sodium (137-145) mmol/L Creatinine (0.66-1.25) mg/dL Glucose (74-99) mg/dL POC Glucose (mg/dL) 185 H 318 H 306 H (75-99) mg/dL C-Reactive Protein (<1.0) mg/dL 09/10/21 09/10/21 09/10/21 Range/Units 07:50 07:50 08:29 ESR 28 H (0-15) mm/hr Sodium 136 L (137-145) mmol/L Creatinine 0.63 L (0.66-1.25) mg/dL Glucose 264 H (74-99) mg/dL POC Glucose (mg/dL) 241 H (75-99) mg/dL C-Reactive Protein 3.8 H (<1.0) mg/dL Microbiology - Last 24 Hours (Table) 09/08/21 21:23 Gram Stain - Preliminary Hand - Left Wound Culture - Preliminary Presumptive MRSA 09/08/21 21:23 Blood Culture - Preliminary Blood No Growth after 24 hours 09/08/21 21:23 Blood Culture - Preliminary Blood No Growth after 24 hours Assessment and Plan (1) Open wound, hand Current Visit: Yes Status: Acute Code(s): S61.409A - UNSPECIFIED OPEN WOUND OF UNSPECIFIED HAND, INIT ENCNTR SNOMED Code(s): 799162781 (2) Type 2 diabetes mellitus Current Visit: Yes Status: Acute Code(s): E11.9 - TYPE 2 DIABETES MELLITUS WITHOUT COMPLICATIONS SNOMED Code(s): 66984946 Plan: The clinical findings were discussed with the patient. The case was discussed at length with Dr. Westfall. The patient has improved at least 50% over the last 24 hours. We will continue IV antibiotics, add warm soaks at least twice daily with half peroxide and half warm water, and warm compresses. If the patient continues to improve, no surgical intervention is needed. If he fails to improve, an incision and drainage will be needed. Final cultures are pending. We will continue to follow patient closely and make further recommendations as needed.
[2021-09-10 12:32] LABS: Glucose,Whole Blood 178 mg/dL (75-99)
--- NOTE | 2021-09-10 16:26 | P.PN ---
Subjective Progress Note Date: 09/10/21 Hospital course: Patient is a very pleasant 46-year-old male with a past medical history [id number] diabetes mellitus, hyperlipidemia and GERD. He presented to the emergency department on 09/09/21 with a chief complaint of redness, swelling, and drainage from wound on the left hand. Patient reported 2 weeks ago he was working on his car and cut his hand resulting in some rust going beneath his skin requiring removal, patient states rest was easily removed and approximately 5 days later (09/01/21) he began experiencing swelling and redness and went to an urgent care in which he was prescribed Augmentin for treatment. Patient states he completed course of antibiotics, but unfortunately redness, swelling, and drainage from wound worsened. Patient now with reports of elevated blood glucose levels and difficulties with range of motion and inability to make a complete fist so he came to the ER for further evaluation. 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 X-ray left hand showing soft tissue edema to medial left hand with no radiographic evidence of osteomyelitis. Wound cultures showing preliminary results of presumptive MRSA, blood culture showing no growth after 24 hours. Physical exam: Patient seen and fully evaluated at the bedside this morning. He reports currently pain to left hand is controlled and denies having any further needs or complaints at this time. He was updated on likely need for IV antibiotics upon discharge due to preliminary wound culture results showing presumptive MRSA. ESR 28 and CRP 3.8. He is showing some improvement in infected wound as there is a decrease in redness and swelling and pt with full ROM in fingers but still having difficulties forming a fist. Wound continues to drain. Pt to continue IV antibiotics with Rocephin and Vancomycin pending final culture and sensitivity results. Encourage warm soaks and warm compresses. Vital signs reviewed and stable. General: Nontoxic, no distress and appears stated age. Derm: Skin warm and dry, normal coloration for ethnicity. Patient with moderate erythema, edema, and open wound with purulent drainage to palmar surface of left hand located beneath fourth and fifth digit and extending to medial side of hand. Head: Atraumatic, normocephalic and symmetric. Eyes: EOMs intact, no lid lag, and anicteric sclera Mouth: no lip lesions, mucus membranes moist Cardiovascular: regular rate and rhythm with normal S1S2, no murmur, positive posterior tibial pulses bilaterally, and cap refill < 2 seconds. Lungs: Respirations even, regular, and unlabored on room air. Lungs CTA bilaterally, no rhonchi, no rales, no wheezing, and no accessory muscle usage. Abdominal: soft, nontender to palpation, no guarding, no appreciable organomegaly Ext: No gross muscle atrophy, no edema, no contractures. Limited range of motion to left hand due to injury/swelling/infection and reports of pain with movement. Patient able to bend pinky finger (fifth digit), but unable to make a fist due to pain. Sensation intact. Neuro: Speech clear, face symmetrical and CN II-XII grossly intact with no noted focal neuro deficits Psych: Alert and oriented to person, place, time, and situation. Appropriate and pleasant affect. Assessment and Plan of Care: Left hand cellulitis, failed outpatient treatment X-ray left hand showing soft tissue edema to medial left hand with no radiographic evidence of osteomyelitis. Wound cultures showing preliminary results of presumptive MRSA, blood culture showing no growth after 24 hours. Consult orthopedic surgery for possible I&D Symptomatic care and pain management Continue close monitoring of range of motion and neurovascular status of left hand Infectious disease following ESR 28 and CRP 3.8. Kvp-[id number]-zsqvvmxaf Diabetes Mellitus with hyperglycemia Hold Glucophage and Januvia and continue glycemic protocol with low-dose sliding scale to obtain tight glycemic control throughout treatment process. Hyperlipidemia Continue daily medication regimen of fluvastatin 20 mg nightly. GERD Continue daily medication regimen with Protonix 40 mg nightly. CODE STATUS: Full code DVT prophylaxis: SCDs Discussed with: Patient, patient's , and RN Anticipated discharge date: Clinical course to determine Anticipated discharge place: Home A total of 40 minutes was spent on the care of this complex patient more than 50% of the time was spent in counseling and care coordination. Objective - Vital Signs Vital signs: Vital Signs Temp 97.9 F 09/10/21 07:00 Pulse 72 09/10/21 07:00 Resp 18 09/10/21 07:00 BP 132/73 09/10/21 07:00 Pulse Ox 97 09/10/21 07:00 Intake & Output 09/09/21 09/10/21 09/10/21 18:59 06:59 18:59 Other: Voiding Method Toilet # Voids 1 - Labs CBC & Chem 7: 09/10/21 07:50 09/10/21 07:50 Labs: Abnormal Lab Results - Last 24 Hours (Table) 09/09/21 09/09/21 09/09/21 Range/Units 12:21 17:27 20:22 Sodium (137-145) mmol/L Creatinine (0.66-1.25) mg/dL Glucose (74-99) mg/dL POC Glucose (mg/dL) 185 H 318 H 306 H (75-99) mg/dL C-Reactive Protein (<1.0) mg/dL 09/10/21 09/10/21 Range/Units 07:50 08:29 Sodium 136 L (137-145) mmol/L Creatinine 0.63 L (0.66-1.25) mg/dL Glucose 264 H (74-99) mg/dL POC Glucose (mg/dL) 241 H (75-99) mg/dL C-Reactive Protein 3.8 H (<1.0) mg/dL Microbiology - Last 24 Hours (Table) 09/08/21 21:23 Gram Stain - Preliminary Hand - Left Wound Culture - Preliminary Presumptive MRSA 09/08/21 21:23 Blood Culture - Preliminary Blood No Growth after 24 hours 09/08/21 21:23 Blood Culture - Preliminary Blood No Growth after 24 hours
[2021-09-10 17:45] LABS: Glucose,Whole Blood 284 mg/dL (75-99)
[2021-09-10] MEDS: PANTOPRAZOLE 40 MG TABLET PO SCH (20:18)
[2021-09-10] MEDS: ATORVASTATIN 10 MG TAB PO SCH (20:18)
[2021-09-10] MEDS: HYDROcodone/APAP 5-325MG 1 EACH TAB PO PRN (20:19)
[2021-09-10 20:47] LABS: Glucose,Whole Blood 351 mg/dL (75-99)
--- NOTE | 2021-09-10 23:29 | PN ---
PROGRESS NOTE DATE OF SERVICE: 09/10/2021. REASON FOR FOLLOWUP: Left hand abscess and cellulitis. INTERVAL HISTORY: The patient is afebrile. The patient is currently breathing comfortably. Overall pain and discomfort to the left hand is slightly decreased. No chest pain, shortness of breath or cough. No abdominal pain or diarrhea. PHYSICAL EXAMINATION: Blood pressure is 131/76, pulse of 68, temperature 97.6. He is 98% on room air. General description is a middle-aged male up in the bed in no distress. RESPIRATORY SYSTEM: Unlabored breathing. Clear to auscultation anteriorly. HEART: S1, S2. Regular rate and rhythm. ABDOMEN: Soft. No tenderness. Left hand swelling and redness has slightly decreased. LABS: Wound culture is showing presumptive MRSA. Creatinine 0.63. DIAGNOSTIC IMPRESSION AND PLAN: Patient with left hand abscess that started as a traumatic wound. The patient may benefit from surgical I and D to decrease the burden of infection and to determine depth of infection. Patient to continue with vancomycin. Rocephin will be discontinued. Continue supportive care. MMODL / IJN: [id number] /
[2021-09-11] MEDS: VANCOMYCIN 1,750 MG in SODIUM CHLORIDE 0.9% 500 ML 500 ML IVPB SCH (01:41)
[2021-09-11 07:51] LABS: Glucose,Whole Blood 238 mg/dL (75-99)
[2021-09-11] MEDS: INSULIN ASPART (NovoLOG) 100 UNIT/ML VIAL SQ SCH ×4 (09:40→21:39)
--- NOTE | 2021-09-11 10:06 | P.PN ---
Subjective Progress Note Date: 09/11/21 Principal diagnosis: Left hand infection The patient is a 46-year-old male with a history of type 2 diabetes presents to the emergency Department with complaints of infected wound to the left hand. Patient states he cut his hand on a merle automobile part on August 26, then wa s seen at urgent care last Friday, September 01, where he was x-rayed and prescribed Augmentin. Patient states he has been taking the antibiotic as directed but has continued to have increased redness, swelling, and has developed a blister-like appearance with drainage from the wound yesterday. He states that the wound opened up and purulent material is expressed. Cultures were taken in the emergency department. Patient denies fever, chills, headache, shortness of breath, nausea or vomiting. Orthopedics is consulted for further evaluation and treatment. Today, the patient states the hand continues to improve. The swelling and pain are better today. The hand is draining more since starting soaks. They do not have peroxide in the hospital and they have been using chlorhexidine and warm water. He is currently on vancomycin. The ceftriaxone was discontinued yesterday. Cultures are revealing presumptive MRSA. Dr. Childress has evaluated the patient and maintains his current antibiotics. Objective - Vital Signs Vital signs: Vital Signs Temp 98.2 F 09/11/21 07:00 Pulse 67 09/11/21 07:00 Resp 16 09/11/21 07:00 BP 134/77 09/11/21 07:00 Pulse Ox 95 09/11/21 07:00 Intake & Output 09/10/21 09/11/21 09/11/21 18:59 06:59 18:59 Intake Total 180 Output Total 0 Balance 180 0 Intake: Oral 180 Output: Emesis 0 Other: Voiding Method Toilet # Voids 3 0 - Exam This is a pleasant 46-year-old male in no acute distress. He is alert and oriented 3. Exam of the left upper extremity reveals improving redness and swelling with an area of opening with some purulent material actively draining along the ulnar/volar aspect of the hand. He has full finger motion is able to fully extend and flex the little finger with very minimal discomfort and some stiffness. Passive motion of the finger without pain. Sensation is intact to the finger. There is no evidence of ascending lymphangitis to the arm. Full elbow motion without difficulty or pain. - Labs CBC & Chem 7: 09/10/21 07:50 09/10/21 07:50 Labs: Abnormal Lab Results - Last 24 Hours (Table) 09/10/21 09/10/21 09/10/21 Range/Units 07:50 12:30 17:44 ESR 28 H (0-15) mm/hr POC Glucose (mg/dL) 178 H 284 H (75-99) mg/dL 09/10/21 09/11/21 Range/Units 20:46 07:24 ESR (0-15) mm/hr POC Glucose (mg/dL) 351 H 238 H (75-99) mg/dL Microbiology - Last 24 Hours (Table) 09/08/21 21:23 Blood Culture - Preliminary Blood No Growth after 48 hours 09/08/21 21:23 Blood Culture - Preliminary Blood No Growth after 48 hours 09/08/21 21:23 Gram Stain - Preliminary Hand - Left Wound Culture - Preliminary Presumptive MRSA Assessment and Plan (1) Open wound, hand Current Visit: Yes Status: Acute Code(s): S61.409A - UNSPECIFIED OPEN WOUND OF UNSPECIFIED HAND, INIT ENCNTR SNOMED Code(s): 470059992 (2) Type 2 diabetes mellitus Current Visit: Yes Status: Acute Code(s): E11.9 - TYPE 2 DIABETES MELLITUS WITHOUT COMPLICATIONS SNOMED Code(s): 14885868 Plan: The clinical findings were discussed with the patient. The case was discussed at length with Dr. Westfall. The patient continues to improve and the infection appears superficial. The infection does not involve the tendon sheath or deeper spaces. We will continue IV antibiotics and warm soaks at least twice daily with half peroxide or chlorhexidine and half warm water, and warm compresses. No surgical intervention is planned at this time. Final cultures are pending. Continue diabetes management and blood sugar control. The patient may be discharged home today from an orthopedic standpoint and he will continue peroxide and warm water soaks at home. Wound care was discussed with the patient. He was advised to follow up later this week in our office for close monitoring.
[2021-09-11 11:35] LABS: Glucose,Whole Blood 327 mg/dL (75-99)
--- NOTE | 2021-09-11 15:01 | P.PN ---
Subjective Patient is doing well today. He is walking around the room get to be discharged. Infectious disease checking insurance coverage for IV antibiotic. MRSA growing in and wound Objective - Vital Signs Vital signs: Vital Signs Temp 98.2 F 09/11/21 07:00 Pulse 67 09/11/21 07:00 Resp 16 09/11/21 08:00 BP 134/77 09/11/21 07:00 Pulse Ox 95 09/11/21 07:00 Intake & Output 09/10/21 09/11/21 09/11/21 18:59 06:59 18:59 Intake Total 180 240 Output Total 0 Balance 180 0 240 Intake: Oral 180 240 Output: Emesis 0 Other: Voiding Method Toilet Toilet # Voids 3 0 - Exam General: The patient is awake and alert, in no distress Eye: there is normal conjunctiva bilaterally. Neck: The neck is supple, there is no JVD. Cardiovascular: Normal S1-S2, no S3-S4, no murmurs. Respiratory: Lungs clear to auscultation bilaterally Gastrointestinal: Abdomen is soft, nontender Musculoskeletal: There is no pedal edema. Neurological:. Speech is normal. Skin: Skin is warm and dry - Labs CBC & Chem 7: 09/10/21 07:50 09/10/21 07:50 Labs: Abnormal Lab Results - Last 24 Hours (Table) 09/10/21 09/10/21 09/11/21 Range/Units 17:44 20:46 07:24 POC Glucose (mg/dL) 284 H 351 H 238 H (75-99) mg/dL 09/11/21 Range/Units 11:34 POC Glucose (mg/dL) 327 H (75-99) mg/dL Microbiology - Last 24 Hours (Table) 09/08/21 21:23 Gram Stain - Final Hand - Left Wound Culture - Final Methicillin resist S. aureus 09/08/21 21:23 Blood Culture - Preliminary Blood No Growth after 48 hours 09/08/21 21:23 Blood Culture - Preliminary Blood No Growth after 48 hours Assessment and Plan Assessment: Patient is a very pleasant 46-year-old male with a past medical history non- insulin-dependent diabetes mellitus, hyperlipidemia and GERD. He presented to the emergency department on 09/09/21 with a chief complaint of redness, swelling, and drainage from wound on the left hand. Patient was evaluated in the ER and admitted to the hospital for further management of his medical problems noted below. Left hand cellulitis, failed outpatient treatment X-ray left hand showing soft tissue edema to medial left hand with no radiographic evidence of osteomyelitis. Wound cultures showing MRSA, blood culture showing no growth after 24 hours. Consult orthopedic surgery, no I&D recommended at this time Infectious disease following, recommending IV antibiotic if there is insurance coverage [id number] Diabetes Mellitus with hyperglycemia Hold Glucophage and Januvia and continue glycemic protocol with low-dose sliding scale to obtain tight glycemic control throughout treatment process. -Patient totally most recent A1c was 6.8 awaiting repeat A1c in the hospital Hyperlipidemia Continue daily medication regimen of fluvastatin 20 mg nightly. GERD Continue daily medication regimen with Protonix 40 mg nightly. CODE STATUS: Full code DVT prophylaxis: SCDs Discussed with: Patient, patient's , and RN Anticipated discharge date: Clinical course to determine Anticipated discharge place: Home
[2021-09-11] MEDS: VANCOMYCIN 2,000 MG in SODIUM CHLORIDE 0.9% 500 ML 500 ML IVPB SCH (16:35)
[2021-09-11 17:07] LABS: Glucose,Whole Blood 156 mg/dL (75-99)
[2021-09-11] MEDS: PANTOPRAZOLE 40 MG TABLET PO SCH (19:50)
[2021-09-11] MEDS: ATORVASTATIN 10 MG TAB PO SCH (19:50)
--- NOTE | 2021-09-11 19:51 | PN ---
PROGRESS NOTE DATE OF SERVICE: 09/11/2021 REASON FOR FOLLOWUP: Left hand abscess, cellulitis, MRSA. INTERVAL HISTORY: The patient is afebrile. The patient is currently breathing comfortably. Left hand swelling has decreased. Patient denies any chest pain. No shortness of breath or cough. No abdominal pain or diarrhea. PHYSICAL EXAMINATION: Blood pressure 146/80 with a pulse of 90, temperature 98.5. He is 97% on room air. General description is a middle-aged male lying in bed in no distress. Respiratory system: Unlabored breathing, clear to auscultation anteriorly. Heart S1, S2. Regular rate and rhythm. Abdomen soft, no tenderness. Left hand swelling has slightly decreased. LABS: Wound culture finalized with MRSA. DIAGNOSTIC IMPRESSION AND PLAN: Patient with MRSA left hand abscess and cellulitis, failing outpatient oral Augmentin therapy. The patient did have extensive infection. Will benefit for at least two weeks of IV vancomycin once arranged to get a PICC line and close outpatient followup. Discussed with the correctional case records supervisor and admitting physician. MORIS / MIKEN: [id number] /
[2021-09-11 21:34] LABS: Glucose,Whole Blood 263 mg/dL (75-99)
[2021-09-12] MEDS: VANCOMYCIN 2,000 MG in SODIUM CHLORIDE 0.9% 500 ML 500 ML IVPB SCH ×2 (00:46→09:32)
[2021-09-12 07:33] LABS: Glucose,Whole Blood 233 mg/dL (75-99)
[2021-09-12] MEDS ORDERED: VANCOMYCIN TROUGH DUE 1 EACH MISC MISCELLANE ONE (08:00)
[2021-09-12 08:01] VITALS: BP 138/89; PULSE 66; RESP 18; TEMP 98.2
[2021-09-12 08:06] LABS: African American GFR (CKD) >90 (>60 ml/min/1.73 sqM); Anion Gap 8 mmol/L; Blood Urea Nitrogen 12 mg/dL (9-20); Calcium 9.5 mg/dL (8.4-10.2); Carbon Dioxide 26 mmol/L (22-30); Chloride 103 mmol/L (98-107); Glucose 262 mg/dL (74-99); Non-African American GFR(CKD) >90 (>60 ml/min/1.73 sqM); Potassium 4.6 mmol/L (3.5-5.1); Sodium 137 mmol/L (137-145)
[2021-09-12] MEDS: INSULIN ASPART (NovoLOG) 100 UNIT/ML VIAL SQ SCH ×2 (08:52→13:13)
--- NOTE | 2021-09-12 09:08 | P.PN ---
Subjective Progress Note Date: 09/12/21 Principal diagnosis: Left hand infection The patient is a 46-year-old male with a history of type 2 diabetes presents to the emergency Department with complaints of infected wound to the left hand. Patient states he cut his hand on a merle automobile part on August 26, then wa s seen at urgent care last Friday, September 01, where he was x-rayed and prescribed Augmentin. Patient states he has been taking the antibiotic as directed but has continued to have increased redness, swelling, and has developed a blister-like appearance with drainage from the wound yesterday. He states that the wound opened up and purulent material is expressed. Cultures were taken in the emergency department. Patient denies fever, chills, headache, shortness of breath, nausea or vomiting. Orthopedics is consulted for further evaluation and treatment. Today, the patient states the hand continues to improve. The swelling and pain are better today. The hand is draining more since starting soaks. They do not have peroxide in the hospital and they have been using chlorhexidine and warm water. He is currently on vancomycin. The ceftriaxone was discontinued yesterday. Cultures reveal MRSA. Dr. Childress has evaluated the patient and maintains his current antibiotics. Dr. Childress recommends IV vanco for 2 weeks outpatient and they are checking into his IV antibiotic coverage. Objective - Vital Signs Vital signs: Vital Signs Temp 98.2 F 09/12/21 07:53 Pulse 66 09/12/21 07:53 Resp 18 09/12/21 07:53 BP 138/89 09/12/21 07:53 Pulse Ox 99 09/12/21 07:53 Intake & Output 09/11/21 09/12/21 09/12/21 18:59 06:59 18:59 Intake Total 690 Output Total 0 Balance 690 0 Intake: Oral 690 Output: Emesis 0 Other: Voiding Method Toilet Toilet # Voids 2 1 - Exam This is a pleasant 46-year-old male in no acute distress. He is alert and oriented 3. Exam of the left upper extremity reveals improving redness and s welling with an area of opening with some purulent material actively draining along the ulnar/volar aspect of the hand. He has full finger motion is able to fully extend and flex the little finger with very minimal discomfort and some stiffness. Passive motion of the finger without pain. Sensation is intact to the finger. There is no evidence of ascending lymphangitis to the arm. Full elbow motion without difficulty or pain. - Labs CBC & Chem 7: 09/10/21 07:50 09/12/21 07:16 Labs: Abnormal Lab Results - Last 24 Hours (Table) 09/10/21 09/11/21 09/11/21 Range/Units 07:50 11:34 17:05 Glucose (74-99) mg/dL POC Glucose (mg/dL) 327 H 156 H (75-99) mg/dL Hemoglobin A1c 8.7 H (4.0-6.0) % 09/11/21 09/12/21 09/12/21 Range/Units 21:33 07:16 07:31 Glucose 262 H (74-99) mg/dL POC Glucose (mg/dL) 263 H 233 H (75-99) mg/dL Hemoglobin A1c (4.0-6.0) % Microbiology - Last 24 Hours (Table) 09/08/21 21:23 Blood Culture - Preliminary Blood No Growth after 72 hours 09/08/21 21:23 Blood Culture - Preliminary Blood No Growth after 72 hours 09/08/21 21:23 Gram Stain - Final Hand - Left Wound Culture - Final Methicillin resist S. aureus Assessment and Plan (1) Open wound, hand Current Visit: Yes Status: Acute Code(s): S61.409A - UNSPECIFIED OPEN WOUND OF UNSPECIFIED HAND, INIT ENCNTR SNOMED Code(s): 272215505 (2) Type 2 diabetes mellitus Current Visit: Yes Status: Acute Code(s): E11.9 - TYPE 2 DIABETES MELLITUS WITHOUT COMPLICATIONS SNOMED Code(s): 53435105 Plan: The clinical findings were discussed with the patient. The case was discussed at length with Dr. Westfall. The patient continues to improve and the infection appears superficial. The infection does not involve the tendon sheath or deeper spaces. We will continue IV antibiotics and warm soaks at least twice daily with half peroxide or chlorhexidine and half warm water, and warm compresses. No surgical intervention is planned at this time. Continue diabetes management and blood sugar control. The patient may be discharged home today from an orthopedic standpoint and he will continue peroxide and warm water soaks at home. ID to manage antibiotics. Wound care was discussed with the patient. He was advised to follow up early next week in our office for close monitoring.
--- NOTE | 2021-09-12 11:58 | P.DS ---
Providers Date of admission: 09/09/21 01:15 Expected date of discharge: 09/12/21 Attending physician: Glen Irvin MD Consults: 09/09/21 00:09 Consult Physician Urgent Consulting Provider: Janeth Westfall Consult Reason/Comments: Wound infection, left hand Do you want consulting provider notified?: Yes, Notify in am 09/09/21 13:05 Consult Physician Routine Consulting Provider: Gina Childress Consult Reason/Comments: Cellulitis left hand failed outpatient treatment with Augmentin Do you want consulting provider notified?: Yes Primary care physician: Physician Nonstaff Hospital Course: Patient is a very pleasant 46-year-old male with a past medical history mbp-[id number]-uysqriola diabetes mellitus, hyperlipidemia and GERD. He presented to the emergency department on 09/09/21 with a chief complaint of redness, swelling, and drainage from wound on the left hand. Patient was evaluated in the ER and admitted to the hospital for further management of his medical proble ms noted below. Left hand cellulitis, failed outpatient treatment X-ray left hand showing soft tissue edema to medial left hand with no radiographic evidence of osteomyelitis. Wound cultures showing MRSA, blood culture showing no growth after 24 hours. Consult orthopedic surgery, no I&D recommended at this time Infectious disease following, patient was started on IV vancomycin during this hospital stay and will be discharged with Bactrim DS twice daily for 7 days Vli-souknao-yjzswwzsw Diabetes Mellitus with hyperglycemia Not well controlled A1c 8.7 -Maintained on Januvia and metformin at home. I added Glucotrol XL 5 mg daily to his regimen Hyperlipidemia Continue daily medication regimen of fluvastatin 20 mg nightly. GERD Continue daily medication regimen with Protonix 40 mg nightly. Patient will be discharged home in a stable condition. He will follow-up with his PCP and infectious disease as directed General: The patient is awake and alert, in no distress Eye: there is normal conjunctiva bilaterally. Neck: The neck is supple, there is no JVD. Cardiovascular: Normal S1-S2, no S3-S4, no murmurs. Respiratory: Lungs clear to auscultation bilaterally Gastrointestinal: Abdomen is soft, nontender Musculoskeletal: There is no pedal edema. Neurological:. Speech is normal. Skin: Skin is warm and dry Patient Condition at Discharge: Serious Plan - Discharge Summary Discharge Rx Participant: No New Discharge Prescriptions: New Sulfamethox-Tmp 800-160Mg [Bactrim DS 800-160 mg] 1 tab PO Q12HR 7 Days #14 tab glipiZIDE XL [Glucotrol XL] 5 mg PO DAILY #30 tab Continue sitaGLIPtin [Januvia] 100 mg PO HS Fluvastatin Sodium 20 mg PO HS Pantoprazole Sodium [Protonix] 40 mg PO HS metFORMIN HCL [Glucophage] 1,000 mg PO HS Aspirin EC [Ecotrin Low Dose] 81 mg PO HS Discontinued Ibuprofen [Motrin Ib] 800 mg PO Q8H PRN PRN Reason: Pain Or Fever > 100.5 Discharge Medication List Aspirin EC [Ecotrin Low Dose] 81 mg PO HS 05/02/21 [History] Fluvastatin Sodium 20 mg PO HS 05/02/21 [History] Pantoprazole Sodium [Protonix] 40 mg PO HS 05/02/21 [History] metFORMIN HCL [Glucophage] 1,000 mg PO HS 05/02/21 [History] sitaGLIPtin [Januvia] 100 mg PO HS 05/02/21 [History] Sulfamethox-Tmp 800-160Mg [Bactrim DS 800-160 mg] 1 tab PO Q12HR 7 Days #14 tab 09/12/21 [Rx] glipiZIDE XL [Glucotrol XL] 5 mg PO DAILY #30 tab 09/12/21 [Rx] Follow up Appointment(s)/Referral(s): Janeth Westfall DO [Doctor of Osteopathic Medicine] - 09/17/21 (Please call the office to make appointment for September 17. ) Nonstaff,Physician [Primary Care Provider] - 1-2 days Gina Childress MD [STAFF PHYSICIAN] - 1 Week Activity/Diet/Wound Care/Special Instructions: Continue warm soaks at home with 1/2 peroxide and warm water 2-3 times daily. Keep wound covered and dry. May need to change dressing as needed for drainage to keep dry. Follow up with Dr. Westfall on Friday09/17/2021. Call for appointment. [phone]. Discharge Disposition: HOME SELF-CARE
[2021-09-12 12:24] LABS: Glucose,Whole Blood 219 mg/dL (75-99)
--- NOTE | 2021-09-12 15:17 | PN ---
PROGRESS NOTE DATE OF SERVICE: 09/12/2021 REASON FOR FOLLOWUP: Left hand MRSA abscess and cellulitis. INTERVAL HISTORY: The patient is afebrile. The patient is breathing comfortably. Denies having any chest pain. No shortness of breath or cough. No abdominal pain. Overall pain and discomfort to the left hand has decreased. PHYSICAL EXAMINATION: Blood pressure 132/89 with a pulse of 66, temperature 98.2. He is 99% on room air. General description is a middle aged male up in the bed in no distress. Respiratory system: Unlabored breathing, clear to auscultation anteriorly. Heart S1, S2. Regular rate and rhythm. Abdomen soft, no tenderness. Left hand swelling has decreased, no drainage. LABS: Creatinine 0.72. Potassium is 4.6. DIAGNOSTIC IMPRESSION AND PLAN: Patient with left hand abscess and cellulitis with spontaneous drainage. Culture with MRSA. Patient was offered IV vancomycin. Apparently the patient did have a high deductible and co-pay which the patient said he could not afford. He will be switched over to Bactrim DS one twice a day for 10 days. Close outpatient followup. Advised if any worsening of swelling or redness on the IV to let me know right away. MMODL / IJN: [id number] /
== END 2021-09-12 13:34 | disposition home or self-care (01) ==
LOC: EC 19:24 → 6NMEDSUR 09-09 01:15
PROVIDERS: ADMIT Internal Medicine; ATTEND Internal Medicine
DX: L03.114 Cellulitis of left upper limb (principal); E78.5 Hyperlipidemia, unspecified; K21.9 Gastro-esophageal reflux disease without esophagitis; E11.65 Type 2 diabetes mellitus with hyperglycemia; B95.62 Methicillin resistant Staphylococcus aureus infection as the cause of diseases classified elsewhere; F17.200 Nicotine dependence, unspecified, uncomplicated; Z20.822 Contact with and (suspected) exposure to COVID-19; Z79.899 Other long term (current) drug therapy; Z79.82 Long term (current) use of aspirin; Z79.84 Long term (current) use of oral hypoglycemic drugs; Z91.030 Bee allergy status; Z91.012 Allergy to eggs; Z71.9 Counseling, unspecified
CPT/HCPCS: 96366 ×5; 96376; 96365; 96367; 99284; 36415; 80048 ×3; 85652; 83605; 85025 ×2; 80202 ×2; 86140; 87040; 87070; 87205; 87077; 87186; 83036; 87635; 73120; G0378 ×4; J3370 ×4; J0696 ×3

== ENCOUNTER 2022-04-16 03:54 | Emergency (ER) | payer BC ==
[2022-04-16 04:08] VITALS: RESP 20; TEMP 97.9
[2022-04-16] MEDS ORDERED: SULFAMETHOX-TMP 800-160MG 1 EACH TAB PO STA (05:06)
[2022-04-16] MEDS ORDERED: SULFAMETH-TMP DS STARTER PACK 2 TAB BTL PO STA (05:07)
--- NOTE | 2022-04-16 05:10 | ED ---
Skin/Abscess/FB HPI - General Chief complaint: Skin/Abscess/Foreign Body Stated complaint: swollen hand Time Seen by Provider: 04/16/22 04:21 Source: patient, family, RN notes reviewed, old records reviewed Mode of arrival: ambulatory Limitations: no limitations - History of Present Illness Initial comments: This is a 47-year-old male to the emergency department for evaluation of left hand swelling and edema decreased range of motion pain with some purulent drainage. Patient was able to get some drainage. Patient's history of diabetes. No recent fevers or infection. Patient's been feeling fine lately until then developed significant swelling and is mainly over his left middle finger. MD complaint: abscess/boil, discoloration -: days(s) Tetanus Up to Date: yes Location: L hand Severity: severe Severity scale (1-10): 9 Quality: stabbing, sharp Consistency: constant Improves with: none Worsens with: none Context: other (Unsure of injury) Associated symptoms: denies other symptoms Treatments Prior to Arrival: none - Related Data Home Medications Medication Instructions Recorded Confirmed Aspirin EC [Ecotrin Low Dose] 81 mg PO HS 05/02/21 09/08/21 Fluvastatin Sodium 20 mg PO HS 05/02/21 09/08/21 Pantoprazole Sodium [Protonix] 40 mg PO HS 05/02/21 09/08/21 metFORMIN HCL [Glucophage] 1,000 mg PO HS 05/02/21 09/08/21 sitaGLIPtin [Januvia] 100 mg PO HS 05/02/21 09/08/21 Previous Rx's Medication Instructions Recorded Sulfamethox-Tmp 800-160Mg [Bactrim 1 tab PO Q12HR 7 Days #14 tab 09/12/21 DS 800-160 mg] glipiZIDE XL [Glucotrol XL] 5 mg PO DAILY #30 tab 09/12/21 Sulfamethox-Tmp 800-160Mg [Bactrim 2 tab PO BID #40 tab 04/16/22 DS 800-160 mg] Allergies Allergy/AdvReac Type Severity Reaction Status Date / Time bee venom protein (honey bee) Allergy Swelling Verified 04/16/22 17:38 egg Allergy Unknown Verified 04/16/22 17:38 Review of Systems ROS Statement: Those systems with pertinent positive or pertinent negative responses have been documented in the HPI. ROS Other: All systems not noted in ROS Statement are negative. Past Medical History Past Medical History: Diabetes Mellitus History of Any Multi-Drug Resistant Organisms: MRSA Date of last positivie culture/infection: 09/08/21 MDRO Source:: MRSA hand Additional Past Surgical History / Comment(s): vasectomy Past Anesthesia/Blood Transfusion Reactions: No Reported Reaction Past Psychological History: No Psychological Hx Reported Smoking Status: Current every day smoker Past Alcohol Use History: Occasional Past Drug Use History: None Reported - Past Family History Family Family Medical History: No Reported History General Exam Limitations: no limitations General appearance: alert, in no apparent distress Head exam: Present: atraumatic, normocephalic, normal inspection Eye exam: Present: normal appearance, PERRL, EOMI. Absent: scleral icterus, conjunctival injection, periorbital swelling ENT exam: Present: normal exam, mucous membranes moist Neck exam: Present: normal inspection. Absent: tenderness, meningismus, lymphadenopathy Respiratory exam: Present: normal lung sounds bilaterally. Absent: respiratory distress, wheezes, rales, rhonchi, stridor Cardiovascular Exam: Present: regular rate, normal rhythm, normal heart sounds. Absent: systolic murmur, diastolic murmur, rubs, gallop, clicks GI/Abdominal exam: Present: soft, normal bowel sounds. Absent: distended, tenderness, guarding, rebound, rigid Extremities exam: Present: normal inspection, full ROM, normal capillary refill, other (Significant swelling and edema of left middle finger with abscess and drainage). Absent: tenderness, pedal edema, joint swelling, calf tenderness Back exam: Present: normal inspection Neurological exam: Present: alert, oriented X3, CN II-XII intact Psychiatric exam: Present: normal affect, normal mood Skin exam: Present: warm, dry, intact, normal color. Absent: rash Course Vital Signs 04/16/22 04/16/22 04:03 05:51 Temperature 97.9 F 97.9 F Pulse Rate 92 85 Respiratory 20 20 Rate Blood Pressure 141/89 138/79 O2 Sat by Pulse 97 98 Oximetry - Reevaluation(s) Reevaluation #1: 04/16/22 Medical record is reviewed Reevaluation #2: 04/16/22 Patient feels improved preferring discharge at this time Reevaluation #3: 04/16/22 Spoke with patient regarding findings here in the ER need to come back if symptoms progress to a spot where they were are similar changes improve including swelling up the arm Procedures - Incision & Drainage Consent Obtained: verbal consent Site: hand (Left middle finger) Size (cm): 2 Anesthetic Used: lidocaine 1% I&D Cleaning Method: Betadine Sterile Field Used?: Yes Needle Aspiration Performed?: No Irrigation Performed?: Yes I&D Drainage Obtained: Pus, Blood Culture Obtained?: No Complications: bleeding Medical Decision Making - Medical Decision Making 47 male to the emergency department with significant abscess possible early flexor tenosynovitis of the left middle finger patient has I&D here in the ER with significant drainage, placed on IV antibiotics and will be discharged home with close follow-up and surgery Disposition Clinical Impression: Type 2 diabetes mellitus, Open wound, hand, Abscess of left middle finger, Flexor tenosynovitis of finger Disposition: HOME SELF-CARE Condition: Good Instructions (If sedation given, give patient instructions): Abscess (ED) Prescriptions: Sulfamethox-Tmp 800-160Mg [Bactrim DS 800-160 mg] 2 tab PO BID #40 tab Is patient prescribed a controlled substance at d/c from ED?: No Referrals: Jesse Sibley DO [Doctor of Osteopathic Medicine] - 1-2 days Jose Maria Borja MD [STAFF PHYSICIAN] - 1-2 days Time of Disposition: 05:30
[2022-04-16 05:53] VITALS: BP 138/79; PULSE 85
== END 2022-04-16 05:53 | disposition home or self-care (01) ==
LOC: EC 03:54
DX: S61.203A Unspecified open wound of left middle finger without damage to nail, initial encounter (principal); L02.512 Cutaneous abscess of left hand; M65.9 Synovitis and tenosynovitis, unspecified; E11.9 Type 2 diabetes mellitus without complications; F17.200 Nicotine dependence, unspecified, uncomplicated; Z91.030 Bee allergy status; Z91.012 Allergy to eggs; X58.XXXA Exposure to other specified factors, initial encounter